=== PATIENT | female | born 1955 | race Caucasian/White ===

== ENCOUNTER 2016-08-26 21:36 | Observation (INO) | payer BC ==
[~2016-08-26] VITALS: Ht 175.3 cm; Wt 89.8 kg
[2016-08-26 22:37] LABS: RED BLOOD COUNT 4.02 M/UL (4.00-5.10)
[2016-08-26 23:06] LABS: BUN/CREATININE RATIO 18 (0-10)
[2016-08-27] MEDS ORDERED: KLONOPIN TAB 00.5 MG PO (05:04)
[2016-08-27] MEDS ORDERED: TENORMIN 25 MG25 MG PO (05:04)
[2016-08-27] MEDS ORDERED: CELEXA40 MG PO (05:05)
[2016-08-27] MEDS ORDERED: PROTONIX40 MG PO (05:05)
[2016-08-27] MEDS ORDERED: MELATONIN5 MG PO (05:05)
[2016-08-27] MEDS ORDERED: EFFER-K 10 MEQ10 MEQ PO (05:05)
[2016-08-27] MEDS ORDERED: NITROSTAT 0.40.4 MG SL (05:06)
[2016-08-27] MEDS ORDERED: LORTAB 5-325 M1 EACH PO (05:07)
[2016-08-27] MEDS ORDERED: LISINOPRIL-HCT1 EAC1 PO (05:07)
[2016-08-27] MEDS ORDERED: XELJANZ5 MG PO (05:11)
== END 2016-08-28 11:45 | disposition home or self-care (01) ==
LOC: ER1 21:36 → ZEROF 08-27 03:15 → M/S 08-27 03:15
PROVIDERS: Family Medicine; ADMIT Hospitalist
DX: I16.0 Hypertensive urgency (principal); I11.9 Hypertensive heart disease without heart failure; R07.9 Chest pain, unspecified; I25.10 Atherosclerotic heart disease of native coronary artery without angina pectoris; E78.5 Hyperlipidemia, unspecified; E11.9 Type 2 diabetes mellitus without complications; M06.9 Rheumatoid arthritis, unspecified; G47.00 Insomnia, unspecified; M79.7 Fibromyalgia; Z98.61 Coronary angioplasty status; Z86.79 Personal history of other diseases of the circulatory system; Z79.891 Long term (current) use of opiate analgesic; Z79.899 Other long term (current) drug therapy; Z88.8 Allergy status to other drugs, medicaments and biological substances; Z90.49 Acquired absence of other specified parts of digestive tract
CPT/HCPCS: ECHO; 36415; 71010; 80053; 82550; 82553; 83874; 83880; 84484; 85025; 93005; 93306; 99285; C1769; C9600; C9601; G0378; J1200; J1644; J2250; J2270; J3010; J7030; Q0163; Q9963

== ENCOUNTER 2016-09-13 21:20 | Observation (INO) | payer BC ==
[~2016-09-13] VITALS: Ht 175.3 cm; Wt 90.7 kg
[~2016-09-13 21:20] MED LIST: CELEXA40 MG PO; EFFER-K 10 MEQ10 MEQ PO; KLONOPIN TAB 00.5 MG PO; LISINOPRIL-HCT1 EAC1 PO; LORTAB 5-325 M1 EACH PO; MELATONIN5 MG PO; NITROSTAT 0.40.4 MG SL; PROTONIX40 MG PO; TENORMIN 25 MG25 MG PO; XELJANZ5 MG PO
[2016-09-13 22:21] LABS: HEMOGLOBIN 11.7 gm/dl (12.3-15.3); RED BLOOD COUNT 3.94 M/UL (4.00-5.10); WHITE BLOOD COUNT 7.1 K/UL (4.5-11.0)
[2016-09-13 22:42] LABS: BUN/CREATININE RATIO 16 (0-10)
[2016-09-14] MEDS ORDERED: LEXAPRO20 MG PO (03:57)
[2016-09-14] MEDS ORDERED: EFFIENT10 MG PO (03:57)
[2016-09-14] MEDS ORDERED: LISINOPRIL10 MG PO (03:58)
[2016-09-14] MEDS ORDERED: HYDROCHLOROTHIA25 MG PO (03:59)
[2016-09-14] MEDS ORDERED: LIPITOR40 MG PO (04:00)
[2016-09-15] MEDS ORDERED: TENORMIN 50 MG50 MG PO (13:58)
[2016-09-15] MEDS ORDERED: KAZANO 12.5-1,1 EACH PO (14:01)
[2016-09-15] MEDS ORDERED: CARDIZEM60 MG PO (15:13)
[2016-09-15] MEDS ORDERED: NESINA25 MG PO (15:33)
== END 2016-09-15 16:21 | disposition home or self-care (01) ==
LOC: ER1 21:20 → M/S 23:59 → ZEROF 23:59 → M/S 09-14 02:51
PROVIDERS: Emergency Medicine; ADMIT Internal Medicine
DX: I49.3 Ventricular premature depolarization (principal); E11.9 Type 2 diabetes mellitus without complications; I25.10 Atherosclerotic heart disease of native coronary artery without angina pectoris; I10 Essential (primary) hypertension; E78.5 Hyperlipidemia, unspecified; M06.9 Rheumatoid arthritis, unspecified; K21.9 Gastro-esophageal reflux disease without esophagitis; Z95.5 Presence of coronary angioplasty implant and graft; Z90.49 Acquired absence of other specified parts of digestive tract; Z88.8 Allergy status to other drugs, medicaments and biological substances; M79.7 Fibromyalgia; Z79.899 Other long term (current) drug therapy
CPT/HCPCS: 36415; 70450; 71010; 80053; 81001; 82550; 82553; 82962; 83735; 83874; 83880; 84443; 84484; 85025; 93005; 99285; G0378; Q0163

== ENCOUNTER → 2020-09-22 | Outpatient (CLI) | payer MEDICARE ==
[~2020-09-22] MED LIST changes: +AMBIEN10 MG PO; +ATENOLOL25 MG PO; +BASAGLAR SQ; +BELSOMRA10 MG PO; +BELVIQ10 MG PO; +BENTYL 10MG CAP10 MG PO; +CARDIZEM60 MG PO; +CELEXA20 MG PO; +CYANOCOBAL1000 MCG/1 INJ; +DESYREL 50 MG T50 MG PO; +EFFIENT10 MG PO; +ELIQUIS5 MG PO; +EVISTA60 MG PO; +GLUCOSE GEL 37.15 GM PO; +HYDROCHLOROTHIA25 MG PO; +JANUVIA100 MG PO; +KAZANO 12.5-1,1 EACH PO; +KLONOPIN1 MG PO; +LANTUS100 UNIT/1 SQ; +LEXAPRO20 MG PO; +LIORESAL TAB 1010 MG PO; +LIPITOR40 MG PO; +LISINOPRIL10 MG PO; +LISINOPRIL2.5 MG PO; +LYRICA50 MG PO; +MELATONIN10 M2 PO; +NESINA25 MG PO; +NORVASC 5 MG TAB5 MG PO; +NORVASC5 MG PO; +OXYCODON-ACETA1 EAC1 PO; +PRAVASTATIN SOD20 MG PO; +PRINIVIL20 MG PO; +RANEXA1000 MG PO; +TENORMIN 50 MG50 MG PO; +WELLBUTRIN SR100 MG PO; +ZANAFLEX4 M1 PO
== END ==
LOC: MRI 07:55
DX: M25.552 Pain in left hip (principal); G89.29 Other chronic pain; S73.102A Unspecified sprain of left hip, initial encounter; R93.6 Abnormal findings on diagnostic imaging of limbs; M94.8X8 Other specified disorders of cartilage, other site; M25.452 Effusion, left hip; R60.0 Localized edema
CPT/HCPCS: 36415; 73721; 82565; 84520

== ENCOUNTER → 2020-10-17 | Outpatient (CLI) | payer MEDICARE ==
[~2020-10-17] MED LIST changes: +HYDROCODON-ACE1 EAC6 PO; +PERCOCET 10-321 EACH PO; +PERCOCET 7.5-31 EACH PO
[2020-10-17 12:24] LABS: HEMOGLOBIN 12.7 gm/dl (12.3-15.3); RED BLOOD COUNT 4.06 M/UL (4.00-5.10); WHITE BLOOD COUNT 8.9 K/UL (4.5-11.0)
[2020-10-17 12:47] LABS: BUN/CREATININE RATIO 27 (0-10)
== END ==
LOC: OPSV2 09:19 → NM 09:19 → OPSV2 11:00
PROVIDERS: Orthopaedic Surgery
DX: Z01.818 Encounter for other preprocedural examination (principal); M25.552 Pain in left hip; G89.29 Other chronic pain; M16.12 Unilateral primary osteoarthritis, left hip; R91.8 Other nonspecific abnormal finding of lung field; R94.31 Abnormal electrocardiogram [ECG] [EKG]
CPT/HCPCS: 36415; 71046; 78300; 80048; 81001; 83036; 85027; 87081; 93005; A9503

== ENCOUNTER → 2020-10-29 | Outpatient (CLI) | payer MEDICARE | LOC: LAB 16:37 | PROVIDERS: Orthopaedic Surgery | DX: Z01.812 Encounter for preprocedural laboratory examination (principal) | CPT/HCPCS: 36415; 80048; 82962; 85610; 85730; 86850; 86900; 86901 ==

== ENCOUNTER 2020-10-30 06:16 | Inpatient (IN) | payer MEDICARE ==
[~2020-10-30] VITALS: Ht 147.3 cm; Wt 97.5 kg
[~2020-10-30 06:16] MED LIST changes: -HYDROCODON-ACE1 EAC6 PO; -PERCOCET 10-321 EACH PO; -PERCOCET 7.5-31 EACH PO
[2020-10-30] MEDS ORDERED: PERCOCET 7.5-31 EACH PO ×3 (11:01→11:16)
--- NOTE | 2020-10-30 15:55 | NUR ---
1450- BLOOD GLUCOSE 49 AT THIS TIME. PATIENT ALERT AND TALKING. PATIENT STATED SHE WANTED TO EAT AND IT WOULD COME BACK UP INSTEAD OF TAKING GLUCOSE FOR IT. WILL MONITOR.
--- NOTE | 2020-10-30 15:59 | NUR ---
1536- PATIENT GLUCOSE 61 AT THIS TIME. EATING SNACK IN BED. WILL MONITOR.
--- NOTE | 2020-10-30 16:53 | NUR ---
BLOOD GLUCOSE 60. PATIENT CONTINUE TO REFUSE D50 OR GLUCOSE. PATIENT AWAKE AND ALERT. DR DE LA O NOTIFIED OF REFUSAL. NEW ORDER FOR PROTOCOL ORDERED. WILL CONTINUE TO MONITOR.
--- NOTE | 2020-10-31 05:23 | NUR ---
ATTEMPTED TO REMOVE PT'S CATHETER PER ORDER. PT REFUSED STATING THAT SHE WAS IN TOO MUCH PAIN AND WASNT READY. NOTIFIED DR PERALTA. WILL LEAVE FC IN PLACE AND CONTINUE TO MONITOR ORDERED.
[2020-10-31 06:54] LABS: HEMOGLOBIN 9.8 gm/dl (12.3-15.3); RED BLOOD COUNT 3.13 M/UL (4.00-5.10); WHITE BLOOD COUNT 8.7 K/UL (4.5-11.0)
[2020-10-31 07:17] LABS: BUN/CREATININE RATIO 20 (0-10)
[2020-11-01 03:42] LABS: HEMOGLOBIN 8.3 gm/dl (12.3-15.3); WHITE BLOOD COUNT 8.8 K/UL (4.5-11.0)
[2020-11-01 03:43] LABS: RED BLOOD COUNT 2.65 M/UL (4.00-5.10)
[2020-11-01] MEDS ORDERED: PERCOCET 10-321 EACH PO (16:44)
[2020-11-02 07:15] LABS: HEMOGLOBIN 7.7 gm/dl (12.3-15.3); RED BLOOD COUNT 2.57 M/UL (4.00-5.10)
--- NOTE | 2020-11-02 16:37 | NUR ---
DR. CISNEROS NOTIFIED THAT BP SYSTOLIC IS 80'S. WILL CONTINUE TO MONITOR AND NOTIFY DR. CISNEROS IF BP IS LESS THAN 85 SYSTOLIC.
[2020-11-03 10:24] LABS: HEMOGLOBIN 10.2 gm/dl (12.3-15.3); RED BLOOD COUNT 3.35 M/UL (4.00-5.10); WHITE BLOOD COUNT 6.3 K/UL (4.5-11.0)
[2020-11-03 10:48] LABS: BUN/CREATININE RATIO 20 (0-10)
--- NOTE | 2020-11-03 23:39 | NUR ---
11/03/20 VITAL SIGNS O2 HANGING AT 88. CHECKED PT SHE WAS SLEEPING INCREASED HER O2 AND SHE CAME UP TO 90%. I WAS CALLING RESPIRATORY WHEN I SAW HE ARRIVED TO THE FLOOR. PLACED PT ON 50% VENTI. 2129 DR CISNEROS HAD PUT IN MORPHINE FOR BREAK THROUGH PAIN. I HAD ALREADY DISCUSSED WITH THE PATIENT'S THAT I WAS CONCERNED WITH THE MEDICATION SHE WAS TAKING AND THAT IT MIGHT BE TOO MUCH. DR CISNEROS GAVE AN ORDER TO DC MORPHINE AND HOLD OXY 10MG, MELATONIN, LYRICA, RANEXA, TRAZADONE AND CLONAZEPAM. LIDODERM WAS ORDERED FOR HER BACK PAIN.
--- NOTE | 2020-11-04 04:47 | NUR ---
11/03/20 0600 DURING THE NIGHT PT WAS A/O X3 WITH MOMENTS OF INAPPROPRIATE CONVERSATION. SHE WOULD PULL THE EXTERNAL CATHETER OUT AND WET THE BED AND THEN SAY SHE DIDN'T KNOW HOW IT CAME OUT. IT WAS REPLACED AND HER BED CHANGED MULTIPLE TIMES. EACH TIME HER BED ALARM WAS SET. AT 0600 I HEARD THE PT YELL AND I RAN INTO THE ROOM ALONG WITH BOTH [place] AND LUPE. I FOUND THE PT LAYING ON THE FLOOR IN URINE CRYING. WHEN I ASK WHAT HAPPEN SHE SAID SHE NEEDED TO GET UP TO PEE. SHE HAD PULLED OUT THE EXTERNAL CATHETER AGAIN. THE BED ALARM WAS SET BUT DID NOT GO OFF. THE PT DID HAVE A YELLOW GOWN AND HER SOCKS WAS PULLED OFF IN HER BED. A YELLOW BAND WAS ON WELL THE LIGHT ABOVE THE DOOR. A STAFF MEMBER WAS NOT IN THE ROOM WHEN THE PT FELL. THE SAID HE WAS ASLEEP AND HEARD HER SAY SOMETHING AND LOOKED UP TO SEE HER SLIDE OFF THE SIDE OF THE BED. WE ASSESSED HER FINDING NO APONTE, WE HELPED HER INTO BED. APPLIED A STRIP ALARM ON HER AND CALLED DR. JOYCE. HE ORDERED A CT OF HER LUMBAR DUE TO COMPLAINT OF BACK PAIN.
[2020-11-04 06:49] LABS: HEMOGLOBIN 12.2 gm/dl (12.3-15.3); RED BLOOD COUNT 3.93 M/UL (4.00-5.10)
[2020-11-04 07:02] LABS: BUN/CREATININE RATIO 17 (0-10)
--- NOTE | 2020-11-04 07:51 | NUR ---
AFTER PLACING PT ON 50% VENTI TO KEEP HER O2 GREATER THAN 92% SHE WAS PLACED ON CONTINUOUS PULSE OX PER DR. CISNEROS. TELE CALLED TO REPORT O2 OF 77%, I WENT IN TO FIND THE PT HAD PULLED OFF HER VENTI MASK. WHEN I ASK WHAT SHE WAS DOING SHE SAID THAT SHE WAS GETTING UP TO GET SOME SANDWICHES. I PLACE THE VENTI BACK ON HER AND THE FIRST READING WAS 78% I HAD HER TAKE SOME DEEP BREATHS AND SHE CAME UP TO MID 80s. I CALLED RESPIRTORY AFTER SEVERAL ATTEMPS THE PT WAS PLACED ON A NON REBREATHER AT 100%. THE PATIENT SEEMED TO BE CONFUSED AND LETHARGIC. ACCORDING TO THE MAR SHE HAD NOT RECEIVED PAIN MEDICATION SINCE 3PM AND THIS WAS 2300. I FELT SHE HAD NOT BEEN GIVEN ENOUGH MEDICATION PER ORDERS TO CAUSE THIS DECREASE IN O2 NOR THIS MUCH LETHERGY. THE PT HAD NARCAN 0.4MG PRN FOR RESPIRTORY DEPRESSION, SO I PULLED 0.4MG NARCAN ONE TIME. LUPE WAS WATCHING HER O2 SAT ON THE MONITOR, WITHIN SECONDS OF GIVING THE NARCAN THE PATIENT'S O2 WENT TO 96% THE PATIENT BEGAN TO SCREAM "WHAT DID YOU GIVE ME?" I EXPLAINED THAT I GAVE NARCAN, AND SHE SCREAMED; "[facility] ALMOST KILLED ME WITH THAT ONE TIME." I ASK HOW THEY ALMOST KILLED HER AND SHE STATED; " I WAS IN SO MUCH PAIN, THEY GAVE ME NARCAN AND TOOK IT ALL AWAY AND I THOUGHT I WAS DYING WITH PAIN." THE PATIENT'S SCREAMED AT ME AND SAID, "SHE HAS A BROKEN BACK, AND YOU JUST TOOK AWAY ALL OF HER PAIN MEDICATION." I EXPLAINED THAT SHE HAD NOT BEEN GIVEN ANY PAIN MEDICATION BY HOSPITAL STAFF SINCE 3PM SO SHE SHOULD NOT BE SO SEDATED THAT I CAN'T KEEP HER O2 SATS. THE PATIENT THEN SAID THAT SHE HAD PREVIOUSLY HAD BLOOD CLOTS IN BOTH LUNGS, THATS THE ONLY TIME SHE HAD EVER HAD DIFFICULTY KEEPING HER OXYGEN UP. I EXPLAINED TO THE PATIENT AND HER OUR NUMBER ONE GOAL WAS TO KEEP HER BREATHING AND IF WE COULD NOT KEEP HER OXYGEN SATS UP SHE WOULD BE PUT ON A VENT. I TRIED TO CALL DR JOYCE TWICE DURING THIS EPISODE WITH NO ANSWER. I CALLED HOUSE TO INFORM HER OF THE SITUATION. SHE ASK IF THE PT WAS STABLE AND I EXPLAINED HER O2 AT THE MOMENT WAS 93% ON 100% NON REBREATHER. SHE THEN SAID THAT SHE WOULD CALL DR JOYCE. DR JOYCE ARRIVED AND THE PT WAS 95% ON A NON REBREATHER. HE ORDERED A ABG AND A STAT CHEST XRAY, AND SAID TO TITRATE THE O2 TO KEEP GREATER THAN 92%. SOMETIME LATER WE WAS ABLE TO WEAN HER DOWN TO 15L HIGH [place] OXYGEN. AT ONE TIME FOR A FEW MINUTES WE WAS ABLE TO GO DOWN TO 12L HIGH [place] N/C BUT SHE WOULD DROP TO 88% THE PATIENT SATS AT SHIFT CHANGE IS 94% ON 15L HIGH LU[place].
[2020-11-05 03:59] LABS: HEMOGLOBIN 11.3 gm/dl (12.3-15.3); RED BLOOD COUNT 3.67 M/UL (4.00-5.10); WHITE BLOOD COUNT 8.9 K/UL (4.5-11.0)
[2020-11-05 04:22] LABS: BUN/CREATININE RATIO 13 (0-10)
[2020-11-05 18:25] LABS: RED BLOOD COUNT 3.87 M/UL (4.00-5.10)
[2020-11-05 23:39] LABS: HEMOGLOBIN 11.1 gm/dl (12.3-15.3); RED BLOOD COUNT 3.62 M/UL (4.00-5.10); WHITE BLOOD COUNT 9.2 K/UL (4.5-11.0)
[2020-11-06 09:58] LABS: HEMOGLOBIN 11.9 gm/dl (12.3-15.3); RED BLOOD COUNT 3.9 M/UL (4.00-5.10); WHITE BLOOD COUNT 8.5 K/UL (4.5-11.0)
[2020-11-06 10:48] LABS: BUN/CREATININE RATIO 15 (0-10)
[2020-11-07 09:43] LABS: HEMOGLOBIN 11.3 gm/dl (12.3-15.3); RED BLOOD COUNT 3.6 M/UL (4.00-5.10)
[2020-11-07 11:53] LABS: BUN/CREATININE RATIO 17 (0-10)
--- NOTE | 2020-11-07 13:31 | NUR ---
MEDICATIONS TAKEN INTO PT. PT UP SITTING IN CHAIR. STATES SHE IS READY TO GO BACK TO BED. LINENS CHANGED. PT ASSISTED BACK TO BED X 1 ASSIST. QUESTIONING WHY BED STRIP AND BED ALARM ACTIVATED. EXPLAINED THAT IT WAS A SAFETY THING. EXPLAINED PURPOSE OF YELLOW GOWN AND YELLOW SOCKS. PT REFUSING YELLOW GOWN AT THIS TIME.
--- NOTE | 2020-11-07 23:43 | NUR ---
PATIENT BED ALARM GOING OFF AROUND 1949. ANOTHER NURSE RESPONDED TO THE ALARM AND THE PATIENT SAID SHE WAS WANTING TO GET IN THE CHAIR. THE NURSE TOLD HER TO HOLD ON, SHE WAS GETTING A SECOND PERSON. ME AND TECH WENT INTO THE ROOM AND PATIENT SAID I ONLY NEED ONE ASSIST, THATS WHAT THE THERAPY LADY SAID TODAY. I TOLD HER I WAS UNCOMFORTABLE DOING IT BY MYSELF AND THE BOARD SUGGESTED A 1-2 MIN ASSIST WITH THE WALKER, SO I WOULD RATHER BE SAFE THAN SORRY. THE PATIENT SAID YOU ARE JUST AFRAID I AM GOING TO [place]. I TOLD HER NO THAT I DID NOT WANT TO GET IN TROUBLE IF SHE WAS TO FALL IN THE FLOOR AGAIN SO I WANTED TO MAKE SURE WE HAD APPROPRIATE HELP FOR HER SAFETY AND MINE.
--- NOTE | 2020-11-07 23:47 | NUR ---
PATIENTS CAME OUT INTO THE [facility] AROUND 2119 AND TOLD ME SHE NEEDED TO GET UP AND PEE. I IMMEDIATELY TOLD THE TECH SHE WAS WANTING UP TO PEE AND TO MEET ME DOWN THERE, I WAS FINISHING HANDING ANOTHER PATIENT THEIR MEDICATON. NO SOONER THAN HE GOT BACK TO THE ROOM, THE STRIP AND BED ALARM BEGIN GOING ON. THE TECH LEFT ROOM 4 AT THIS TIME AND BEFORE SHE GOT TO ROOM 6, THE ALARMS WERE TURNED OFF. I LEFT ROOM 4 AND WENT DOWN TO THE PATIENTS ROOM AND TOLD THEM TO PLEASE NOT TURN MY BED ALARMS OFF, IT WAS A SAFETY MEASURE. THE PATIENT TOLD ME SHE NEEDED TO PEE BAD AND HER WOULD BE TAKING CARE OF HER ALONE AT HOME SO HE GOT HER UP. I TOLD HER IT TOOK US A VERY SHORT AMOUNT OF TIME TO GET TO HER ROOM AFTER HE ASKED AND I KNEW HE WOULD TAKING CARE OF HER AT HOME, BUT HE COULD NOT DO IT ALONE HERE. IF HE WANTED TO BE INVOLVED AND HELP US GET HER UP, THAT WAS FINE, BUT STAFF HAD TO BE PRESENT AND THEY COULD NOT TURN OFF THE ALARMS. I EXPLAINED THAT IT WAS FOR HER SAFETY AND I DID NOT WANT HER FALLING AGAIN BECAUSE SHE MAY GET HURT. SHE TOLD ME IF WE WERE WORRIED ABOUT HER SAFETY WE NEEDED TO TALK TO WHOEVER PUT HER CATHETER IN AND KINKED IT, MAKING HER FALL THE OTHER NIGHT BECAUSE SHE COULD HAVE MESSED UP HER NEW HIP REPLACEMENT.
[2020-11-08 04:50] LABS: HEMOGLOBIN 10.3 gm/dl (12.3-15.3); RED BLOOD COUNT 3.33 M/UL (4.00-5.10); WHITE BLOOD COUNT 6.1 K/UL (4.5-11.0)
[2020-11-08 05:29] LABS: BUN/CREATININE RATIO 17 (0-10)
[2020-11-08] MEDS ORDERED: HYDROCODON-ACE1 EAC6 PO (10:59)
== END 2020-11-09 12:32 | disposition home health service (06) | DRG 469 ==
LOC: OR 06:16 → EDSTATUS 09:15 → OR 11:37 → M/S 11:37
PROVIDERS: Internal Medicine; ADMIT Orthopaedic Surgery
PROC: 0SRB04A Replacement of Left Hip Joint with Ceramic on Polyethylene Synthetic Substitute, Uncemented, Open Approach (ICD-10-PCS; 2020-10-30)
PROC: 30233N1 Transfusion of Nonautologous Red Blood Cells into Peripheral Vein, Percutaneous Approach (ICD-10-PCS; principal; 2020-11-02)
PROC: 5A0945A Assistance with Respiratory Ventilation, 24-96 Consecutive Hours, High Flow/Velocity Cannula (ICD-10-PCS; 2020-11-02)
PROC: 0PS43ZZ Reposition Thoracic Vertebra, Percutaneous Approach (ICD-10-PCS; 2020-11-06)
PROC: 0PU43JZ Supplement Thoracic Vertebra with Synthetic Substitute, Percutaneous Approach (ICD-10-PCS; 2020-11-06)
DX: M16.12 Unilateral primary osteoarthritis, left hip (principal); J96.01 Acute respiratory failure with hypoxia; S22.089A Unspecified fracture of T11-T12 vertebra, initial encounter for closed fracture; F11.20 Opioid dependence, uncomplicated; D62 Acute posthemorrhagic anemia; Z20.822 Contact with and (suspected) exposure to COVID-19; E78.5 Hyperlipidemia, unspecified; I11.0 Hypertensive heart disease with heart failure; E11.9 Type 2 diabetes mellitus without complications; F41.9 Anxiety disorder, unspecified; F32.9 Major depressive disorder, single episode, unspecified; I25.10 Atherosclerotic heart disease of native coronary artery without angina pectoris; J45.909 Unspecified asthma, uncomplicated; K59.00 Constipation, unspecified; K76.0 Fatty (change of) liver, not elsewhere classified; K58.9 Irritable bowel syndrome, unspecified; M48.00 Spinal stenosis, site unspecified; M06.9 Rheumatoid arthritis, unspecified; K21.9 Gastro-esophageal reflux disease without esophagitis; W18.30XA Fall on same level, unspecified, initial encounter; Y92.238 Other place in hospital as the place of occurrence of the external cause; R31.9 Hematuria, unspecified; Z79.4 Long term (current) use of insulin; Z95.5 Presence of coronary angioplasty implant and graft; Z86.711 Personal history of pulmonary embolism; Z79.01 Long term (current) use of anticoagulants; Z90.49 Acquired absence of other specified parts of digestive tract; Z88.6 Allergy status to analgesic agent; Z88.8 Allergy status to other drugs, medicaments and biological substances; Z99.81 Dependence on supplemental oxygen; I25.2 Old myocardial infarction; Z87.440 Personal history of urinary (tract) infections
CPT/HCPCS: 36415; 36600; 71045; 72131; 72170; 73502; 76000; 80048; 80053; 81001; 82272; 82803; 82962; 83735; 85025; 85610; 85730; 86850; 86900; 86901; 86920; 93970; 94760; 97110-GP-CQ; 97116-GP-CQ; 97161; 97164; 97165; 97530-GP-CQ; 97535; C1776; G0378; J0171; J0690; J1170; J1650; J1940; J2001; J2250; J2310; J2370; J2550; J2704; J2710; J2795; J3010; J3370; J3420; J7050; J7120; P9016; Q9967; U0002

== ENCOUNTER → 2021-02-19 | Outpatient (CLI) | payer MEDICARE ==
[~2021-02-19] MED LIST changes: +HYDROCODON-ACE1 EAC6 PO; +PERCOCET 10-321 EACH PO; +PERCOCET 7.5-31 EACH PO
== END ==
LOC: SLEEP-COR 21:30
DX: G47.33 Obstructive sleep apnea (adult) (pediatric) (principal)
CPT/HCPCS: 95810